=== PATIENT | male | born 1970 | race Two or more races ===

== ENCOUNTER 2025-03-24 04:25 | Emergency (ER) | payer OTHER ==
[~2025-03-24] VITALS: Ht 172.7 cm; Wt 77.1 kg
[2025-03-24 04:42] VITALS: BP 155/78; O2SAT 99
[2025-03-24] MEDS ORDERED: PROMETHAZINE HCL 50 MG/ML AMPUL IM STA (04:54)
[2025-03-24] MEDS ORDERED: MORPHINE SULFATE 4 MG/ML VIAL IV STA (04:54)
[2025-03-24] MEDS ORDERED: 0.9 % SODIUM CHLORIDE 1,000 ML IV ONE (05:00)
[2025-03-24] MEDS ORDERED: BARIUM SULFATE 450 ML ORAL.SUSP PO ONE (05:14)
[2025-03-24] MEDS ORDERED: PROMETHAZINE HCL 50 MG/ML AMPUL IM ONE (05:14)
[2025-03-24 05:55] LABS: BASO % 0.2 % (0.1-1.2); EOS # 0.07 (0.04-0.54); EOS % 0.8 % (0.7-7.0); LYMPH # 1.13 (1.18-3.74); LYMPH % 12.8 % (19.3-53.1); MEAN PLATELET VOLUME 11.70 fl (9.4-12.4); MONO # 0.47 (0.24-0.82); MONO % 5.3 % (4.7-12.5); NEUT # 7.09 (1.56-6.13); NEUT % 80.7 % (34.0-71.1); RED CELL DISTRIBUTION WIDTH 13.4 % (11.6-14.4)
[2025-03-24 06:33] LABS: INR 1.0
[2025-03-24 06:36] LABS: ALT/SGPT 29.0 U/L (12-78); AST/SGOT 23.0 U/L (15-37); BILIRUBIN TOTAL 0.8 mg/dL (0.3-1.2); BUN CREA RATIO 26.0 (7.0-25.0); CREATININE SERUM 0.86 mg/dL (0.70-1.30); GFR 91.99; GLOBULINA 2.8 G/DL (2.4-3.5); GLUCOSE FASTING 132.0 mg/dL (65-100); OSMOLALITY SERUM 283.0 MOSM/KG (275-295)
[2025-03-24] MEDS ORDERED: CIPROFLOXACIN IN 5 % DEXTROSE 400 MG/200 ML PIGGYBAG IV STA (08:08)
[2025-03-24] MEDS ORDERED: METRONIDAZOLE/SODIUM CHLORIDE 500 MG/100 ML PIGGYBACK IV STA (08:08)
[2025-03-24] MEDS ORDERED: METRONIDAZOLE/SODIUM CHLORIDE 500 MG/100 ML PIGGYBACK IV ONE (08:51)
[2025-03-24] MEDS ORDERED: CIPROFLOXACIN IN 5 % DEXTROSE 400 MG/200 ML PIGGYBAG IV ONE (08:51)
[2025-03-24] MEDS ORDERED: METRONIDAZOLE500 MG PO (17:36)
[2025-03-24] MEDS ORDERED: PEPCID AC20 MG PO (17:36)
[2025-03-24] MEDS ORDERED: LEVSIN/SL0.125 MG SL (17:36)
[2025-03-24] MEDS ORDERED: CIPRO500 MG PO (17:36)
[2025-03-24] MEDS ORDERED: ZOFRAN8 MG PO (17:36)
[2025-03-24] MEDS ORDERED: PROBIOTIC1 EAC2 PO (17:36)
== END 2025-03-24 18:20 | disposition home or self-care (01) ==
LOC: ER 04:25
PROVIDERS: General Practice
DX: R10.32 Left lower quadrant pain (principal); R10.9 Unspecified abdominal pain
CPT/HCPCS: 36415; 74176; 96365; 96366; 96372; 99284; J0744; J2270; J2550; J3490; J7030